=== PATIENT | female | born 1985 | race American Indian/Alaskan Native ===

== ENCOUNTER 2016-11-28 22:44 | Emergency (ER) | payer SELFPAY ==
[2016-11-28 23:07] VITALS: BP 104/70; PULSE 73; TEMP 98.2; O2SAT 98
--- NOTE | 2016-11-28 23:43 | C.PDOC ---
History Of Present Illness Patient c/o itchy rash/bites to the bilateral wrist and back of the neck for 3- 4 days. Patient notes she was outside and may have gotten bitten by insects. Denies fever, drainage, SOB, or pain. (+) travel, [place] 11/23/2016. Time Seen by Provider: 11/28/16 23:14 Chief Complaint (Nursing): Abnormal Skin Integrity History Per: Patient History/Exam Limitations: no limitations Onset/Duration Of Symptoms: Days (4) Current Symptoms Are (Timing): Still Present Quality Of Symptoms: Itching Severity: Mild Recent travel outside of the [place]: No Additional History Per: Patient Past Medical History Reviewed: Historical Data, Nursing Documentation, Vital Signs Vital Signs: Last Vital Signs Temp 98.2 F 11/28/16 23:04 Pulse 73 11/28/16 23:04 Resp 20 11/28/16 23:58 BP 104/70 11/28/16 23:04 Pulse Ox 98 11/29/16 01:02 Family History: States: Unknown Family Hx - Social History Hx Alcohol Use: No Hx Substance Use: No - Immunization History Hx Tetanus Toxoid Vaccination: No Hx Influenza Vaccination: No Hx Pneumococcal Vaccination: No Review Of Systems Constitutional: Negative for: Fever Respiratory: Negative for: Shortness of Breath Skin: Positive for: Rash (Itchy). Negative for: Other (Drainage) Physical Exam - Physical Exam Appears: Non-toxic, No Acute Distress Skin: Warm, Dry, Rash (1.5 cm nodules to the bilateral dorsal wrist and posterior neck. No signs of cellulitis.) Head: Atraumatic, Normacephalic Eye(s): bilateral: Normal Inspection Ear(s): Bilateral: Normal Oral Mucosa: Moist Tongue: Normal Appearing, No Swelling Lips: Normal Appearing, No Swelling Throat: Normal, No Erythema, No Exudate Cardiovascular: Rhythm Regular, No Murmur Respiratory: Normal Breath Sounds, No Wheezing Neurological/Psych: Oriented x3 ED Course And Treatment O2 Sat by Pulse Oximetry: 98 (RA) Pulse Ox Interpretation: Normal Medical Decision Making Medical Decision Making: Patient is in no acute distress at this time and is currently afebrile. Patient was advised to visit PMD for further evaluations and to return if symptoms worsens. Disposition - Disposition Referrals: [facility] [Outside] Disposition: HOME/ ROUTINE Disposition Time: 23:40 Condition: GOOD Additional Instructions: Follow up with the medical doctor within 1-2 days. Return if worsened. Prescriptions: DiphenhydrAMINE [Benadryl] 25 mg PO QID #28 cap predniSONE [Prednisone] 10 mg PO BID #10 tab Instructions: Insect Bite or Sting (ED) Forms: [employer] (Bulgarian) - Clinical Impression Clinical Impression: Insect bite - wound - Scribe Statement The provider has reviewed the documentation as recorded by the Faisaliboc mays All medical record entries made by the Faisaliboc were at my direction and personally dictated by me. I have reviewed the chart and agree that the record accurately reflects my personal performance of the history, physical exam, medical decision making, and the department course for this patient. I have also personally directed, reviewed, and agree with the discharge instructions and disposition.
[2016-11-29 00:04] VITALS: RESP 20
== END 2016-11-28 23:58 | disposition home or self-care (01) ==
LOC: C.ER 22:44
DX: S60.862A Insect bite (nonvenomous) of left wrist, initial encounter (principal); S60.861A Insect bite (nonvenomous) of right wrist, initial encounter; S10.96XA Insect bite of unspecified part of neck, initial encounter; W57.XXXA Bitten or stung by nonvenomous insect and other nonvenomous arthropods, initial encounter; Y93.9 Activity, unspecified; Y92.9 Unspecified place or not applicable